=== PATIENT | female | born 1960 | race Caucasian/White ===

== ENCOUNTER 2021-10-14 01:22 | Emergency (ER) | payer MEDICAID, OTHER ==
[2021-10-14] MEDS ORDERED: Ketorolac 30 MG/ML SDV IVPUSH ONE (02:25)
[2021-10-14] MEDS ORDERED: Ondansetron 4 MG/2 ML SDV IVPUSH ONE (02:25)
[2021-10-14] MEDS ORDERED: Lactated Ringers 1,000 ML IV ONE (02:26)
[2021-10-14] MEDS ORDERED: Sodium Chloride 0.9% 10 ML Syringe FLUSH PRN (02:26)
[2021-10-14 03:13] LABS: ESTIMATED GFR 84 mL/min (>60)
== END 2021-10-14 04:58 | disposition home or self-care (01) ==
LOC: JP.ED 01:22
DX: U07.1 COVID-19 (principal); Z88.2 Allergy status to sulfonamides
CPT/HCPCS: 36415; 80053; 83605; 84145; 85025; 86140; 87635; 96361; 96374; 96375; 99284; J1885; J2405; J3490; J7120; U0002